=== PATIENT | female | born 1985 | race Caucasian/White ===

== ENCOUNTER 2017-09-11 09:26 | Outpatient (CLI) | payer OTHER | END 2017-09-11 15:06 | disposition home or self-care (01) | LOC: RAD 09:26 | DX: N91.2 Amenorrhea, unspecified (principal); Z01.419 Encounter for gynecological examination (general) (routine) without abnormal findings; N97.9 Female infertility, unspecified; E03.9 Hypothyroidism, unspecified; E22.9 Hyperfunction of pituitary gland, unspecified; E16.2 Hypoglycemia, unspecified; E55.9 Vitamin D deficiency, unspecified; E78.5 Hyperlipidemia, unspecified; N39.0 Urinary tract infection, site not specified; Z12.4 Encounter for screening for malignant neoplasm of cervix; E78.1 Pure hyperglyceridemia; I10 Essential (primary) hypertension ==